=== PATIENT | male | born 1985 | race Native Hawaiian/Other Pacific Islander ===

== ENCOUNTER → 2020-07-18 16:46 | Outpatient (CLI) | payer OTHER, SELFPAY ==
--- NOTE | 2020-07-18 | DI.MRI.S_ITS ---
PROCEDURE: MR LUMBAR SPINE WO CON INDICATIONS: Radiculopathy, lumbar region TECHNIQUE: Noncontrast sagittal T1 spin echo and T2 fast echo, sagittal STIR, axial T1 and T2 fast spin echo through the lumbar spine. In cases with scoliosis, additional coronal T2 fast spin echo may be performed. COMPARISON: None. FINDINGS: Image quality: Excellent. Trace retrolisthesis of L5 on S1. Bone Marrow: No fracture. Multilevel degenerative endplate sclerosis and spurring. Diffuse facet arthropathy. Spinal Cord: Conus medullaris terminates at the L2 level. Visualized cord demonstrates normal signal and size. Paraspinous Soft Tissues: No paravertebral masses. L1-L2: Normal appearance. L2-L3: Normal appearance. L3-L4: Normal appearance. L4-L5: Posterior annular fissure and minimal canal narrowing. Partial effacement of both lateral recesses with bilaterally symmetric appearance. Mild left foraminal narrowing. No definite right foraminal stenosis. L5-S1: Minimal canal narrowing. Lateral recesses appear grossly patent. No foraminal stenosis. IMPRESSION: Lower lumbar spondylosis and facet disease. No high-grade canal narrowing Mild left L4-L5 foraminal stenosis Dictated by: Kalpesh Carver M.D. on 07/19/2020 at 8:48 Approved by: Kalpesh Carver M.D. on 07/19/2020 at 8:53
== END ==
PROVIDERS: Referring Provider Physical Medicine & Rehabilitation Pain Medicine; Visit Provider Physical Medicine & Rehabilitation Pain Medicine
DX: M47.26 Other spondylosis with radiculopathy, lumbar region (principal); M48.061 Spinal stenosis, lumbar region without neurogenic claudication
CPT/HCPCS: 72148